=== PATIENT | male | born 1995 | race African-American/Black ===

== ENCOUNTER 2017-09-23 12:00 | Emergency (ER) | payer OTHER ==
[~2017-09-23] VITALS: Ht 170.2 cm; Wt 88.9 kg
[~2017-09-23 12:00] MED LIST: HYCET 7.5 MG-3473 ML PO
[2017-09-23 12:28] LABS: ABSOLUTE LYMPHOCYTES 1.6 thou/uL (0.8-5.3); ABSOLUTE MONOCYTES 0.4 thou/uL (0.0-1.2); ABSOLUTE NEUTROPHILS 3.3 thou/uL (1.6-8.1); BASOPHILS 0.7 %; EOSINOPHILS 0.4 %; HEMOGLOBIN 14.6 gm/dL (14.0-18.0); LYMPHOCYTES 29.4 %; MCH 23.3 pg (26.0-34.0); MCHC 31.6 g/dL (28.0-37.0); MCV 73.8 fL (80.0-100.0); MONOCYTES 8.3 %; MPV 9.4 fl. (7.2-11.1); NUCLEATED RBCS 0 /100WBC; PLATELET COUNT* 208 thou/uL (150-400); POLYS 61.2 %; RBC 6.24 mil/uL (4.50-6.00); RDW-CV 15.7 % (10.5-14.5); WBC 5.4 thou/uL (4.0-11.0)
[2017-09-23 12:36] LABS: ANION GAP 6 mmol/L (7-16); BUN 16 mg/dL (7-18); CALCIUM 9.1 mg/dL (8.5-10.1); CHLORIDE 105 mmol/L (98-107); CO2 28 mmol/L (21-32); CREATININE 0.9 mg/dL (0.6-1.3); GLUCOSE 113 mg/dL (70-99); POTASSIUM 3.8 mmol/L (3.5-5.1); SODIUM 139 mmol/L (136-145)
[2017-09-23 12:42] LABS: ALBUMIN 3.9 g/dL (3.4-5.0); ALKALINE PHOSPHATASE 78 U/L (46-116); SGOT 13 U/L (15-37); SGPT 17 U/L (30-65); TOTAL BILIRUBIN 1.1 mg/dL (<0.1-1.0); TROPONIN-I LEVEL <0.06 ng/mL (<0.06)
[2017-09-23] MEDS ORDERED: TRILEPTAL300 MG PO (14:02)
[2017-09-23 15:03] VITALS: BP 115/62
--- NOTE | 2017-09-25 13:28 | EKG ---
[place] [address] ELECTROCARDIOGRAM REPORT Name: KIRK HALE JR Room: [facility]#: [id number] Admission: 09/23/17 Attend Phys: Discharge: 09/23/17 Date of : [birth year] Report #: [id number] THIS REPORT FOR: //name// [facility] ED Test Date: 2017-09-23 Test Time: 12:14:49 Pat Name: KIRK HALE Department: Room: Gender: M Spiritual Counselor: Feliciano LORA : 1995 Requested By: Eduard Gurrola Order Number: [id number] MD: Dhruv Fernandez Measurements Intervals [place] Rate: 49 P: 61 VA: 140 QRS: 63 QRSD: 87 T: 40 QT: 420 QTc: 380 Interpretive Statements Sinus bradycardia No previous ECG available for comparison Electronically Signed On 09-25-2017 13:28:49 CDT by Dhruv Fernandez [email or web address] <ELECTRONICALLY SIGNED> By: Dhruv Fernandez MD, [facility] 09/25/17 1328 1214 1214 Dhruv Fernandez MD, FACC /EPI
== END 2017-09-23 15:04 | disposition home or self-care (01) ==
LOC: M.ERS 12:00
PROVIDERS: Emergency Medicine Emergency Medical Services
DX: R56.9 Unspecified convulsions (principal)

== ENCOUNTER 2017-10-29 15:17 | Emergency (ER) | payer OTHER ==
[~2017-10-29] VITALS: Ht 152.4 cm; Wt 79.4 kg
[~2017-10-29 15:17] MED LIST changes: +TRILEPTAL300 MG PO
[2017-10-29 15:52] VITALS: BP 127/75
== END 2017-10-29 15:53 | disposition home or self-care (01) ==
LOC: M.ERS 15:17
DX: S51.812A Laceration without foreign body of left forearm, initial encounter (principal); F17.210 Nicotine dependence, cigarettes, uncomplicated; W26.0XXA Contact with knife, initial encounter; Y93.89 Activity, other specified; Y92.89 Other specified places as the place of occurrence of the external cause; Y99.8 Other external cause status